=== PATIENT | female | born 1945 | race Caucasian/White ===

== ENCOUNTER 2021-03-05 12:43 | Inpatient (IN) | payer MEDICARE ==
[~2021-03-05] VITALS: Ht 170.2 cm; Wt 104.3 kg
[~2021-03-05 12:43] MED LIST: ACETAMINOPHEN325 M1 PO; CLOPIDOGREL75 MG PO; CRANBERRY400 MG PO; CRANBERRY500 M1 PO; D-20002000 UNIT PO; FERROUS GLUCON324 M2 PO; FISH OIL 1,001000 M2 PO; FORTAMET1000 MG PO; GABAPENTIN600 M1 PO; GUAIFENESIN ER600 MG PO; HUMALOG100 UNIT/1 SUBQ; HYDROXYCHLOROQ200 M1 PO; LANTUS SUBQ; LEVOTHYROXINE50 MCG PO; LIPITOR 20 MG T20 M1 PO; LISINOPRIL10 MG PO; LISINOPRIL20 MG PO; LOPRESSOR25 PO; LOPRESSOR50 MG PO; NEURONTIN 300300 M1 PO; NITROGLYCERIN0.4 MG; NORTRIPTYLINE H50 M3 PO; NORVASC10 MG PO; NORVASC2.5 MG PO; NOVOLOG100 UNIT/1 SUBQ; OMEPRAZOLE 20 M20 M1 PO; PAXIL10 MG PO; VITAMIN D1000 UNI1 PO
[2021-03-05 13:05] VITALS: BP 170/61
[2021-03-05] MEDS ORDERED: CARVEDILOL12.5 MG PO (13:27)
[2021-03-05] MEDS ORDERED: ASA81BEC PO (13:27)
[2021-03-05 13:29] LABS: URINE BILIRUBIN NEGATIVE (Negative); URINE BLOOD NEGATIVE (Negative); URINE CLARITY CLEAR; URINE COLOR YELLOW; URINE GLUCOSE-RANDOM NEGATIVE (Negative); URINE KETONES 1+ (Negative); URINE LEUKOCYTES-REFLEX TRACE (Negative); URINE NITRITE-REFLEX NEGATIVE (Negative); URINE PROTEIN TRACE (Negative)
[2021-03-05] MEDS ORDERED: HYDROXYZINE HCL25 M2 PO (13:32)
[2021-03-05] MEDS ORDERED: IRON18 M1 PO (13:32)
[2021-03-05] MEDS ORDERED: CRANBERRY400 M1 PO (13:32)
[2021-03-05] MEDS ORDERED: MELATONIN5 MG SUBLING (13:33)
[2021-03-05] MEDS ORDERED: MILK THISTLE140 M2 PO (13:33)
[2021-03-05] MEDS ORDERED: HUMALOG100 UNIT/1 SUBQ (13:33)
[2021-03-05] MEDS ORDERED: OLMESARTAN MEDO20 MG PO (13:34)
[2021-03-05] MEDS ORDERED: LEVOTHYROXINE50 MC1 PO (13:34)
[2021-03-05 13:41] LABS: BACTERIA-REFLEX 1-9 Few /HPF (None Seen); CASTS None Seen /LPF (None Seen); CRYSTALS None Seen /LPF (None Seen); SQUAMOUS 0-3 Few /LPF (0-3); URINE RBC None Seen /HPF (0-2); URINE WBC-REFLEX 6-15 Few /HPF (0-5)
[2021-03-05 15:40] LABS: CALCIUM 9.9 mg/dL (8.5-10.1); CREATININE 1.3 mg/dL (0.6-1.3); POTASSIUM 4.8 mmol/L (3.5-5.1)
[2021-03-05 15:42] LABS: ABSOLUTE BASOPHILS 0.1 thou/uL (0.0-0.2); ABSOLUTE EOSINOPHILS 0.1 thou/uL (0.0-0.7); ABSOLUTE LYMPHOCYTES 1.3 thou/uL (0.8-5.3); ABSOLUTE MONOCYTES 0.7 thou/uL (0.0-1.2); BASOPHILS 0.9 %; EOSINOPHILS 1.1 %; HEMATOCRIT 37.5 % (37.0-47.0); HEMOGLOBIN 12.6 gm/dL (12.0-15.0); LYMPHOCYTES 21.6 %; MCHC 33.6 g/dL (28.0-37.0); MCV 83.3 fL (80.0-100.0); MONOCYTES 11.6 %; MPV 7.8 fl. (7.2-11.1); NUCLEATED RBCS 0 /100WBC; PLATELET COUNT* 159 thou/uL (150-400); POLYS 64.8 %; RDW-CV 14.7 % (10.5-14.5); WBC 6.1 thou/uL (4.0-11.0)
[2021-03-05 15:44] LABS: ALBUMIN 3.8 g/dL (3.4-5.0); TOTAL BILIRUBIN 0.7 mg/dL (<0.1-1.0); TOTAL PROTEIN 7.8 g/dL (6.4-8.2)
[2021-03-05] MEDS ORDERED: OXYCODONE HCL 55 MG PO (16:36)
[2021-03-05 21:00] VITALS: BP 144/43
[2021-03-06 01:00] VITALS: BP 148/56
[2021-03-06 04:25] VITALS: BP 156/51
[2021-03-06 08:54] VITALS: BP 147/45
[2021-03-06 11:03] LABS: CALCIUM 9.3 mg/dL (8.5-10.1); CREATININE 1.1 mg/dL (0.6-1.3); POTASSIUM 4.7 mmol/L (3.5-5.1)
[2021-03-06 14:23] VITALS: BP 158/47
[2021-03-06 15:30] VITALS: BP 158/47
[2021-03-06 19:46] VITALS: BP 123/81
[2021-03-07] VITALS: BP 144/68
[2021-03-07 04:00] VITALS: BP 182/69
[2021-03-07 05:42] LABS: HEMATOCRIT 35.7 % (37.0-47.0); HEMOGLOBIN 11.8 gm/dL (12.0-15.0); MCH 28.2 pg (26.0-34.0); MCV 85.5 fL (80.0-100.0); RBC 4.17 mil/uL (4.20-5.00); RDW-CV 14.8 % (10.5-14.5); WBC 4.3 thou/uL (4.0-11.0)
[2021-03-07 06:08] LABS: ALBUMIN 3.4 g/dL (3.4-5.0); CALCIUM 9.1 mg/dL (8.5-10.1); CREATININE 1.2 mg/dL (0.6-1.3); MAGNESIUM 1.6 mg/dL (1.8-2.4); POTASSIUM 3.9 mmol/L (3.5-5.1); TOTAL BILIRUBIN 0.6 mg/dL (<0.1-1.0); TOTAL PROTEIN 7.2 g/dL (6.4-8.2)
[2021-03-07 08:00] VITALS: BP 174/65
[2021-03-07] MEDS ORDERED: CARVEDILOL12.5 MG PO (11:11)
[2021-03-07 11:34] VITALS: BP 167/77
[2021-03-07 16:00] VITALS: BP 166/53
[2021-03-07 20:00] VITALS: BP 150/52
[2021-03-08 02:17] VITALS: BP 116/51
[2021-03-08 04:31] LABS: HEMATOCRIT 35.7 % (37.0-47.0); HEMOGLOBIN 11.9 gm/dL (12.0-15.0); MCH 28.5 pg (26.0-34.0); MCHC 33.2 g/dL (28.0-37.0); MCV 85.9 fL (80.0-100.0); MPV 7.5 fl. (7.2-11.1); RBC 4.16 mil/uL (4.20-5.00); RDW-CV 14.7 % (10.5-14.5); WBC 3.7 thou/uL (4.0-11.0)
[2021-03-08 05:17] LABS: CALCIUM 9.1 mg/dL (8.5-10.1); CREATININE 1.3 mg/dL (0.6-1.3); MAGNESIUM 1.7 mg/dL (1.8-2.4); POTASSIUM 4.4 mmol/L (3.5-5.1)
[2021-03-08 08:48] VITALS: BP 143/54
[2021-03-08 12:23] VITALS: BP 129/56
[2021-03-08 17:35] VITALS: BP 133/59
[2021-03-08 20:00] VITALS: BP 148/63
[2021-03-09] VITALS (7 sets, daily range): BP systolic 144–161; BP diastolic 58–94
[2021-03-09 06:31] LABS: HEMOGLOBIN 11.4 gm/dL (12.0-15.0); MCH 28.3 pg (26.0-34.0); MCHC 33.5 g/dL (28.0-37.0); MCV 84.4 fL (80.0-100.0); MPV 7.7 fl. (7.2-11.1); RBC 4.03 mil/uL (4.20-5.00); RDW-CV 14.9 % (10.5-14.5); WBC 3.1 thou/uL (4.0-11.0)
[2021-03-09 06:41] LABS: CALCIUM 9.1 mg/dL (8.5-10.1); CREATININE 1.1 mg/dL (0.6-1.3); POTASSIUM 4.7 mmol/L (3.5-5.1); TOTAL BILIRUBIN 0.5 mg/dL (<0.1-1.0); TOTAL PROTEIN 6.5 g/dL (6.4-8.2)
[2021-03-09] MEDS ORDERED: LEVOFLOXACIN750 MG PO (08:39)
== END 2021-03-09 17:32 | disposition home or self-care (01) | DRG 690 ==
LOC: M.ERS 12:43 → M.TBA-ER 17:02 → M.2W 17:02
PROVIDERS: Internal Medicine; Nurse Practitioner Family; ADMIT Internal Medicine; ATTEND Internal Medicine
DX: N30.01 Acute cystitis with hematuria (principal); E87.1 Hypo-osmolality and hyponatremia; E11.9 Type 2 diabetes mellitus without complications; I10 Essential (primary) hypertension; I25.10 Atherosclerotic heart disease of native coronary artery without angina pectoris; Z20.822 Contact with and (suspected) exposure to COVID-19; E78.5 Hyperlipidemia, unspecified; E66.9 Obesity, unspecified; Z68.36 Body mass index [BMI] 36.0-36.9, adult; Z90.710 Acquired absence of both cervix and uterus; Z90.49 Acquired absence of other specified parts of digestive tract; Z88.6 Allergy status to analgesic agent; Z88.1 Allergy status to other antibiotic agents; Z88.2 Allergy status to sulfonamides; Z88.8 Allergy status to other drugs, medicaments and biological substances; Z79.899 Other long term (current) drug therapy

== ENCOUNTER 2021-04-04 11:03 | Inpatient (IN) | payer MEDICARE ==
[~2021-04-04] VITALS: Ht 170.2 cm; Wt 99.8 kg
[~2021-04-04 11:03] MED LIST changes: +ASA81BEC PO; +CARVEDILOL12.5 MG PO; +CRANBERRY400 M1 PO; +HYDROXYZINE HCL25 M2 PO; +IRON18 M1 PO; +LEVOFLOXACIN750 MG PO; +LEVOTHYROXINE50 MC1 PO; +MELATONIN5 MG SUBLING; +MILK THISTLE140 M2 PO; +OLMESARTAN MEDO20 MG PO; +OXYCODONE HCL 55 MG PO
[2021-04-04 11:47] VITALS: BP 120/48
[2021-04-04] MEDS ORDERED: SELENIUM PO (12:02)
[2021-04-04] MEDS ORDERED: SUPER THERAVIT1 EACH PO (12:02)
[2021-04-04] MEDS ORDERED: VITAMIN C100 MG PO (12:02)
[2021-04-04 13:23] LABS: HEMATOCRIT 33.3 % (37.0-47.0); HEMOGLOBIN 11.2 gm/dL (12.0-15.0); MCH 28.2 pg (26.0-34.0); MCHC 33.7 g/dL (28.0-37.0); MCV 83.9 fL (80.0-100.0); MPV 8.6 fl. (7.2-11.1); NUCLEATED RBCS 0 /100WBC; PLATELET COUNT* 191 thou/uL (150-400); RBC 3.96 mil/uL (4.20-5.00); RDW-CV 15.3 % (10.5-14.5); WBC 8.6 thou/uL (4.0-11.0)
[2021-04-04 13:32] LABS: CALCIUM 9.6 mg/dL (8.5-10.1); CREATININE 1.5 mg/dL (0.6-1.3); POTASSIUM 4.9 mmol/L (3.5-5.1)
[2021-04-04 13:43] LABS: ALBUMIN 2.9 g/dL (3.4-5.0); TOTAL BILIRUBIN 0.7 mg/dL (<0.1-1.0); TOTAL PROTEIN 7.3 g/dL (6.4-8.2)
[2021-04-04 14:05] LABS: ABSOLUTE LYMPHOCYTES 0.8 thou/uL (0.8-5.3); ABSOLUTE MONOCYTES 0.9 thou/uL (0.0-1.2)
[2021-04-04 14:06] LABS: PLATELET ESTIMATE ADEQUATE
[2021-04-04 18:28] VITALS: BP 135/61
[2021-04-04 20:00] VITALS: BP 147/57
[2021-04-04 22:23] LABS: URINE BILIRUBIN NEGATIVE (Negative); URINE BLOOD NEGATIVE (Negative); URINE CLARITY CLEAR; URINE COLOR YELLOW; URINE GLUCOSE-RANDOM NEGATIVE (Negative); URINE KETONES 1+ (Negative); URINE LEUKOCYTES-REFLEX NEGATIVE (Negative); URINE NITRITE-REFLEX NEGATIVE (Negative); URINE PROTEIN TRACE (Negative); URINE SPECIFIC GRAVITY >= 1.030 (1.005-1.030); URINE UROBILINOGEN 0.2 E.U./dl (0.2-1.0)
[2021-04-05] VITALS: BP 110/41
[2021-04-05 03:27] LABS: CHOLESTEROL 88 mg/dL (<200); HDL CHOLESTEROL 38 mg/dL (>40); TC:HDL 2.3 Ratio (Not establshd)
[2021-04-05 04:00] VITALS: BP 166/65
[2021-04-05 06:44] LABS: LDL CHOLESTEROL 40 mg/dL (<100); TRIGLYCERIDE 50 mg/dL (<150); VLDL 10 mg/dL (<40)
[2021-04-05 06:46] LABS: SERUM ASSESSMENT Clear
[2021-04-05 07:00] VITALS: BP 171/68
--- NOTE | 2021-04-05 10:37 | EKG ---
[place] [address] ELECTROCARDIOGRAM REPORT Name: MOIRANICHO Room: [place] [address] ADM IN [facility]#: [id number] Admission: 04/04/21 Attend Phys: Yovanny Urban Discharge: Date of : 45 Date of Service: 04/04/21 1312 Report #: [id number] THIS REPORT FOR: //name// [facility] ED Test Date: 2021-04-04 Test Time: 13:12:26 Pat Name: NICHO PIZARRO Department: Room: [facility] Gender: F Women Nurse: : 1945 Requested By: Steve Fields Order Number: [id number] MD: Gregory Juarez Measurements Intervals [place] Rate: 59 P: DE: QRS: 106 QRSD: 113 T: 28 QT: 429 QTc: 425 Interpretive Statements Sinus rhythm Premature atrial contractions Low voltage, precordial leads No previous ECG available for comparison Electronically Signed On 04-05-2021 10:37:49 [employer] by Gregory Juarez [email or web address] <ELECTRONICALLY SIGNED> By: Gregory Juarez MD, [facility] 04/05/21 1037 1312 131 Gregory Juarez MD, [facility] /EPI
[2021-04-05 11:12] VITALS: BP 172/82
[2021-04-05] MEDS ORDERED: TESSALON PERLE100 MG PO (15:03)
[2021-04-05] MEDS ORDERED: DOXYCYCLINE 10100 MG PO (15:06)
[2021-04-05] MEDS ORDERED: PROAIR HFA8.5 GM INH (15:06)
[2021-04-05] MEDS ORDERED: DECADRON4 MG PO (15:12)
[2021-04-05 16:01] VITALS: BP 172/82
[2021-04-05 17:10] VITALS: BP 168/71; BP 172/82
[2021-04-06 02:06] LABS: GLYCOHEMOGLOBIN (HGB A1C) 7.8 % (4.8-5.6)
== END 2021-04-05 17:10 | disposition home health service (06) | DRG 177 ==
LOC: M.ERS 11:03 → M.TBA-ER 13:52
PROVIDERS: Family Medicine; ADMIT Internal Medicine; ATTEND Internal Medicine
DX: U07.1 COVID-19 (principal); J96.01 Acute respiratory failure with hypoxia; J12.82 Pneumonia due to coronavirus disease 2019; N17.0 Acute kidney failure with tubular necrosis; E87.1 Hypo-osmolality and hyponatremia; E11.9 Type 2 diabetes mellitus without complications; I10 Essential (primary) hypertension; E05.90 Thyrotoxicosis, unspecified without thyrotoxic crisis or storm; M19.90 Unspecified osteoarthritis, unspecified site; Z96.659 Presence of unspecified artificial knee joint; K74.60 Unspecified cirrhosis of liver; M79.7 Fibromyalgia; E78.5 Hyperlipidemia, unspecified; E66.9 Obesity, unspecified; Z68.34 Body mass index [BMI] 34.0-34.9, adult; Z90.710 Acquired absence of both cervix and uterus; Z90.49 Acquired absence of other specified parts of digestive tract; Z88.2 Allergy status to sulfonamides; Z88.8 Allergy status to other drugs, medicaments and biological substances; Z88.6 Allergy status to analgesic agent; Z88.1 Allergy status to other antibiotic agents; Z91.041 Radiographic dye allergy status; Z82.49 Family history of ischemic heart disease and other diseases of the circulatory system; Z79.82 Long term (current) use of aspirin; Z79.899 Other long term (current) drug therapy